=== PATIENT | male | born 1965 | race African-American/Black ===

== ENCOUNTER 2017-12-27 15:16 | Inpatient (IN) | payer OTHER, MEDICARE ==
[2017-12-27 16:00] LABS: ADD MAN DIFF? NO
[2017-12-27 16:02] LABS: BASO # 0.1 x10^3/uL (0.0-0.2); BASO % 1 % (0-3); EOS # 0.4 x10^3/uL (0.0-0.7); EOS % 3 % (0-3); HEMATOCRIT 34.2 % (39.0-53.0); HEMOGLOBIN 11.3 g/dL (13.0-17.5); LYMPH % 8 % (24-48); MEAN CORPUSCULAR HEMOGLOBIN 29 pg (25-35); MEAN CORPUSCULAR HGB CONC 33 g/dL (31-37); MEAN CORPUSCULAR VOLUME 86 fL (79-100); MONO % 8 % (0-9); NEUT # 9.4 x10^3uL (1.8-7.7); NEUT % 79 % (31-73); PLATELET COUNT 266 x10^3/uL (140-400); RED BLOOD COUNT 3.97 x10^6/uL (4.30-5.70); RED CELL DISTRIBUTION WIDTH 14.5 % (11.5-14.5); WHITE BLOOD COUNT 11.9 x10^3/uL (4.0-11.0)
[2017-12-27 16:13] LABS: INR 1.1 (0.8-1.1); PROTHROMBIN TIME PATIENT 13.7 SEC (11.7-14.0)
[2017-12-27 16:14] LABS: PARTIAL THROMBOPLASTIN TIME 35 SEC (24-38)
[2017-12-27 16:18] LABS: ANION GAP 8 (6-14); BLOOD UREA NITROGEN 39 mg/dL (8-26); BUN/CREATININE RATIO 13 (6-20); CALCIUM 8.4 mg/dL (8.5-10.1); CARBON DIOXIDE 27 mmol/L (21-32); CHLORIDE 102 mmol/L (98-107); CREATININE 2.9 mg/dL (0.7-1.3); GFR 22.8; GLUCOSE 251 mg/dL (70-99); POTASSIUM 4.2 mmol/L (3.5-5.1); SODIUM 137 mmol/L (136-145)
[2017-12-27 16:24] LABS: ALBUMIN 2.1 g/dL (3.4-5.0); ALBUMIN/GLOBULIN RATIO 0.4 (1.0-1.7); ALK PHOS 85 U/L (46-116); ALT (SGPT) 34 U/L (16-63); AST (SGOT) 23 U/L (15-37); TOTAL BILIRUBIN 0.3 mg/dL (0.2-1.0); TOTAL PROTEIN 7.1 g/dL (6.4-8.2)
[2017-12-27 16:26] LABS: LACTIC ACID 0.8 mmol/L (0.4-2.0)
[2017-12-27] MEDS: VANCOMYCIN 2 GM in IV DEXTROSE 5 %-0.2 % NACL 500 ML IV (16:44)
[2017-12-27] MEDS: VANCOMYCIN PER PHARMACY MC ×2 (17:56)
[2017-12-27] MEDS ORDERED: PIP/TAZO PER PHARMACY MC ×2 (18:00)
[2017-12-27] MEDS ORDERED: DOCUSATE SODIUM 100 MG CAPSULE. PO ×2 (18:30)
[2017-12-27] MEDS ORDERED: ONDANSETRON PF 4 MG/2 ML VIAL. IV ×2 (18:30)
[2017-12-27] MEDS ORDERED: MORPHINE SULFATE 2 MG/ML DISP.SYRIN. IV ×2 (18:30)
[2017-12-27] MEDS ORDERED: ACETAMINOPHEN 325 MG TABLET. PO ×2 (18:30)
[2017-12-27] MEDS ORDERED: DEXTROSE 50% 25 GM / 50ML DISP.SYRIN. IV ×2 (18:30)
[2017-12-27] MEDS ORDERED: IPRATRPIUM/ALBUTEROL 0.5/2.5MG 3 ML NEBU. NEB ×2 (20:00)
[2017-12-27] MEDS: IPRATRPIUM/ALBUTEROL 0.5/2.5MG 3 ML NEBU. NEB ×2 (20:12)
[2017-12-27] MEDS ORDERED: PNEUMOCOCCAL VAX SCREEN BY RX. MC ×2 (20:15)
[2017-12-27] MEDS ORDERED: ENOXAPARIN 40 MG/0.4 ML SYRINGE. SQ ×2 (21:00)
[2017-12-27] MEDS: ENOXAPARIN 30 MG/0.3 ML SYRINGE. SQ ×2 (21:09)
[2017-12-27] MEDS: IV NORMAL SALINE 1000ML BAG 1,000 ML IV ×2 (21:09)
[2017-12-27] MEDS: PIPERACILLIN/TAZOBACTAM 3.375 GM in IV NORMAL SALINE 50ML 50 ML IV (21:11)
[2017-12-27 21:37] LABS: POC GLUCOSE 214 mg/dL (70-99)
[2017-12-27 22:43] LABS: INFLUENZA A PATIENT NEGATIVE (NEGATIVE); INFLUENZA B PATIENT NEGATIVE (NEGATIVE); OBC FLU VALID
[2017-12-28] MEDS: PIPERACILLIN/TAZOBACTAM 3.375 GM in IV NORMAL SALINE 50ML 50 ML IV ×4 (00:15→19:50)
[2017-12-28] MEDS: traMADol 50 MG TABLET PO ×2 (00:19)
[2017-12-28 04:28] LABS: BILIRUBIN,URINE NEGATIVE (NEG); CLARITY,URINE CLEAR; COLOR,URINE YELLOW; GLUCOSE,URINE 500 mg/dL (NEG); NITRITE,URINE NEGATIVE (NEG); PROTEIN,URINE >=300 mg/dL (NEG-TRACE)
[2017-12-28 04:48] LABS: AMORPHOUS SEDIMENT,UR PRESENT /HPF; BACTERIA,URINE 0 /HPF (0-FEW); HYALINE CASTS, URINE FEW /HPF; RBC,URINE OCC /HPF (0-2); SPERM,URINE PRESENT /HPF; SQUAMOUS EPITHELIAL CELL,UR FEW /LPF
[2017-12-28 05:53] LABS: ADD MAN DIFF? NO
[2017-12-28 06:12] LABS: BASO # 0.1 x10^3/uL (0.0-0.2); BASO % 1 % (0-3); EOS # 0.3 x10^3/uL (0.0-0.7); EOS % 3 % (0-3); HEMOGLOBIN 10.9 g/dL (13.0-17.5); LYMPH # 0.7 x10^3/uL (1.0-4.8); LYMPH % 7 % (24-48); MEAN CORPUSCULAR HEMOGLOBIN 29 pg (25-35); MEAN CORPUSCULAR HGB CONC 33 g/dL (31-37); MEAN CORPUSCULAR VOLUME 87 fL (79-100); MONO # 0.7 x10^3/uL (0.0-1.1); MONO % 7 % (0-9); NEUT # 8.3 x10^3uL (1.8-7.7); NEUT % 83 % (31-73); PLATELET COUNT 244 x10^3/uL (140-400); RED CELL DISTRIBUTION WIDTH 14.3 % (11.5-14.5); WHITE BLOOD COUNT 10.1 x10^3/uL (4.0-11.0)
[2017-12-28 06:21] LABS: ANION GAP 9 (6-14); BLOOD UREA NITROGEN 37 mg/dL (8-26); CALCIUM 8.5 mg/dL (8.5-10.1); CARBON DIOXIDE 25 mmol/L (21-32); CHLORIDE 103 mmol/L (98-107); CREATININE 2.9 mg/dL (0.7-1.3); GFR 27.6; GLUCOSE 304 mg/dL (70-99); POTASSIUM 4.3 mmol/L (3.5-5.1); SODIUM 137 mmol/L (136-145)
[2017-12-28] MEDS: IPRATRPIUM/ALBUTEROL 0.5/2.5MG 3 ML NEBU. NEB ×8 (07:24→18:27)
[2017-12-28 07:28] LABS: POC GLUCOSE 273 mg/dL (70-99)
[2017-12-28] MEDS: INSULIN ASPART 300 UNITS/3 ML INSULN.PEN SQ ×6 (09:35→17:00)
[2017-12-28 11:28] LABS: POC GLUCOSE 207 mg/dL (70-99)
[2017-12-28] MEDS: IV NORMAL SALINE 1000ML BAG 1,000 ML IV ×2 (12:57)
[2017-12-28] MEDS: VANCOMYCIN PER PHARMACY MC ×2 (15:20)
[2017-12-28 16:58] LABS: POC GLUCOSE 74 mg/dL (70-99)
[2017-12-28] MEDS ORDERED: VANCOMYCIN 1.5 GM in IV DEXTROSE 5 %-0.45 % NACL 500 ML IV (17:00)
[2017-12-28] MEDS: VANCOMYCIN 1.25 GM in IV 1/2 NORMAL SALINE 250 ML IV (21:16)
[2017-12-28] MEDS: LACTOBACILLUS RHAMNOSUS GG 1 CAPSULE. PO ×2 (21:17)
[2017-12-28] MEDS: ENOXAPARIN 30 MG/0.3 ML SYRINGE. SQ ×2 (21:17)
[2017-12-28 21:20] LABS: POC GLUCOSE 114 mg/dL (70-99)
[2017-12-29] MEDS: PIPERACILLIN/TAZOBACTAM 3.375 GM in IV NORMAL SALINE 50ML 50 ML IV ×4 (00:10→20:53)
[2017-12-29] MEDS: IV NORMAL SALINE 1000ML BAG 1,000 ML IV ×4 (00:11→20:53)
[2017-12-29] MEDS: traMADol 50 MG TABLET PO ×2 (03:30)
[2017-12-29] MEDS: ALBUTEROL SULFATE 2.5 MG/3 ML NEBU. NEB ×2 (03:43)
[2017-12-29 05:48] LABS: WHITE BLOOD COUNT 15.6 x10^3/uL (4.0-11.0)
[2017-12-29 05:49] LABS: BASO % 0 % (0-3); EOS % 2 % (0-3); HEMATOCRIT 34.5 % (39.0-53.0); HEMOGLOBIN 11.4 g/dL (13.0-17.5); LYMPH % 4 % (24-48); MEAN CORPUSCULAR HEMOGLOBIN 29 pg (25-35); MEAN CORPUSCULAR HGB CONC 33 g/dL (31-37); MEAN CORPUSCULAR VOLUME 86 fL (79-100); MONO % 6 % (0-9); NEUT # 13.7 x10^3uL (1.8-7.7); NEUT % 88 % (31-73); PLATELET COUNT 262 x10^3/uL (140-400); RED BLOOD COUNT 3.99 x10^6/uL (4.30-5.70); RED CELL DISTRIBUTION WIDTH 14.4 % (11.5-14.5)
[2017-12-29 05:50] LABS: BASO # 0.1 x10^3/uL (0.0-0.2); EOS # 0.2 x10^3/uL (0.0-0.7); LYMPH # 0.6 x10^3/uL (1.0-4.8)
[2017-12-29 05:51] LABS: ADD MAN DIFF? YES
[2017-12-29 06:33] LABS: ANION GAP 10 (6-14); BLOOD UREA NITROGEN 41 mg/dL (8-26); CALCIUM 8.5 mg/dL (8.5-10.1); CARBON DIOXIDE 25 mmol/L (21-32); CHLORIDE 103 mmol/L (98-107); CREATININE 3.4 mg/dL (0.7-1.3); GLUCOSE 168 mg/dL (70-99); POTASSIUM 4.8 mmol/L (3.5-5.1); SODIUM 138 mmol/L (136-145)
[2017-12-29 07:37] LABS: POC GLUCOSE 153 mg/dL (70-99)
[2017-12-29] MEDS: IPRATRPIUM/ALBUTEROL 0.5/2.5MG 3 ML NEBU. NEB ×8 (08:02→19:27)
[2017-12-29] MEDS: LACTOBACILLUS RHAMNOSUS GG 1 CAPSULE. PO ×4 (09:26→20:54)
[2017-12-29] MEDS: PNEUMOC CONJ VACC 23-VALENT 0.5 ML VIAL. VAX IM ×2 (09:28)
[2017-12-29] MEDS: INSULIN ASPART 300 UNITS/3 ML INSULN.PEN SQ ×6 (09:31→17:00)
[2017-12-29] MEDS: hydrALAZINE 20 MG/ML VIAL. IVP ×2 (09:59)
[2017-12-29 11:12] LABS: % EOS 1 % (0-5); % LYMPHS 5 % (24-48); % MONOS 7 % (0-10); % SEGS 87 % (35-66); PLT ESTIMATE ADEQUATE (ADEQUATE)
[2017-12-29 11:14] LABS: BURR CELLS MOD
[2017-12-29 12:03] LABS: POC GLUCOSE 161 mg/dL (70-99)
[2017-12-29] MEDS: VANCOMYCIN PER PHARMACY MC ×4 (12:48→18:31)
[2017-12-29 16:52] LABS: POC GLUCOSE 102 mg/dL (70-99)
[2017-12-29 17:41] LABS: VANC TR 18.8 mcg/mL (10.0-20.0)
[2017-12-29] MEDS: VANCOMYCIN 1.25 GM in IV 1/2 NORMAL SALINE 250 ML IV (18:27)
[2017-12-29 20:25] LABS: POC GLUCOSE 211 mg/dL (70-99)
[2017-12-29] MEDS: ENOXAPARIN 30 MG/0.3 ML SYRINGE. SQ ×2 (20:55)
[2017-12-30] MEDS: PIPERACILLIN/TAZOBACTAM 3.375 GM in IV NORMAL SALINE 50ML 50 ML IV ×4 (01:41→20:38)
[2017-12-30] MEDS: hydrALAZINE 20 MG/ML VIAL. IVP ×6 (01:42→20:41)
[2017-12-30] MEDS: IV NORMAL SALINE 1000ML BAG 1,000 ML IV ×4 (03:45→20:39)
[2017-12-30 05:15] LABS: ADD MAN DIFF? NO
[2017-12-30 05:20] LABS: BASO # 0.1 x10^3/uL (0.0-0.2); BASO % 1 % (0-3); EOS # 0.2 x10^3/uL (0.0-0.7); EOS % 2 % (0-3); HEMATOCRIT 32.2 % (39.0-53.0); HEMOGLOBIN 10.9 g/dL (13.0-17.5); LYMPH # 0.5 x10^3/uL (1.0-4.8); LYMPH % 4 % (24-48); MEAN CORPUSCULAR HEMOGLOBIN 29 pg (25-35); MEAN CORPUSCULAR HGB CONC 34 g/dL (31-37); MEAN CORPUSCULAR VOLUME 86 fL (79-100); MONO # 0.9 x10^3/uL (0.0-1.1); MONO % 8 % (0-9); NEUT # 10.6 x10^3uL (1.8-7.7); NEUT % 86 % (31-73); PLATELET COUNT 278 x10^3/uL (140-400); RED BLOOD COUNT 3.74 x10^6/uL (4.30-5.70); RED CELL DISTRIBUTION WIDTH 14.2 % (11.5-14.5); WHITE BLOOD COUNT 12.3 x10^3/uL (4.0-11.0)
[2017-12-30 05:47] LABS: ANION GAP 11 (6-14); BLOOD UREA NITROGEN 37 mg/dL (8-26); CALCIUM 8.8 mg/dL (8.5-10.1); CARBON DIOXIDE 23 mmol/L (21-32); CHLORIDE 103 mmol/L (98-107); CREATININE 2.9 mg/dL (0.7-1.3); GFR 27.6; GLUCOSE 245 mg/dL (70-99); POTASSIUM 4.2 mmol/L (3.5-5.1); SODIUM 137 mmol/L (136-145)
[2017-12-30 07:33] LABS: POC GLUCOSE 221 mg/dL (70-99)
[2017-12-30] MEDS: LACTOBACILLUS RHAMNOSUS GG 1 CAPSULE. PO ×4 (07:58→20:36)
[2017-12-30] MEDS: INSULIN ASPART 300 UNITS/3 ML INSULN.PEN SQ ×6 (07:59→17:00)
[2017-12-30] MEDS: IPRATRPIUM/ALBUTEROL 0.5/2.5MG 3 ML NEBU. NEB ×8 (08:07→19:45)
[2017-12-30 11:39] LABS: POC GLUCOSE 189 mg/dL (70-99)
[2017-12-30] MEDS: traMADol 50 MG TABLET PO ×2 (11:57)
[2017-12-30] MEDS: VANCOMYCIN PER PHARMACY MC ×2 (13:36)
[2017-12-30 17:09] LABS: POC GLUCOSE 146 mg/dL (70-99)
[2017-12-30] MEDS: VANCOMYCIN 1.25 GM in IV 1/2 NORMAL SALINE 250 ML IV (17:46)
[2017-12-30] MEDS: ENOXAPARIN 30 MG/0.3 ML SYRINGE. SQ ×2 (20:39)
[2017-12-30 23:36] LABS: POC GLUCOSE 230 mg/dL (70-99)
[2017-12-31] MEDS: PIPERACILLIN/TAZOBACTAM 3.375 GM in IV NORMAL SALINE 50ML 50 ML IV ×4 (00:15→20:34)
[2017-12-31 04:03] LABS: ADD MAN DIFF? NO
[2017-12-31 04:51] LABS: BASO % 0 % (0-3); EOS # 0.4 x10^3/uL (0.0-0.7); EOS % 4 % (0-3); HEMATOCRIT 33.8 % (39.0-53.0); HEMOGLOBIN 11.6 g/dL (13.0-17.5); LYMPH # 0.5 x10^3/uL (1.0-4.8); LYMPH % 5 % (24-48); MEAN CORPUSCULAR HEMOGLOBIN 30 pg (25-35); MEAN CORPUSCULAR HGB CONC 34 g/dL (31-37); MEAN CORPUSCULAR VOLUME 86 fL (79-100); MONO # 0.8 x10^3/uL (0.0-1.1); MONO % 8 % (0-9); NEUT # 8.5 x10^3uL (1.8-7.7); NEUT % 83 % (31-73); PLATELET COUNT 304 x10^3/uL (140-400); RED BLOOD COUNT 3.93 x10^6/uL (4.30-5.70); RED CELL DISTRIBUTION WIDTH 14.6 % (11.5-14.5); WHITE BLOOD COUNT 10.3 x10^3/uL (4.0-11.0)
[2017-12-31 05:37] LABS: ANION GAP 11 (6-14); BLOOD UREA NITROGEN 28 mg/dL (8-26); CALCIUM 9.3 mg/dL (8.5-10.1); CARBON DIOXIDE 24 mmol/L (21-32); CHLORIDE 105 mmol/L (98-107); CREATININE 2.6 mg/dL (0.7-1.3); GFR 31.3; GLUCOSE 148 mg/dL (70-99); SODIUM 140 mmol/L (136-145)
[2017-12-31] MEDS: IPRATRPIUM/ALBUTEROL 0.5/2.5MG 3 ML NEBU. NEB ×8 (07:42→20:00)
[2017-12-31] MEDS: INSULIN ASPART 300 UNITS/3 ML INSULN.PEN SQ ×6 (08:00→17:00)
[2017-12-31] MEDS: LACTOBACILLUS RHAMNOSUS GG 1 CAPSULE. PO ×4 (08:23→20:20)
[2017-12-31] MEDS: hydrALAZINE 20 MG/ML VIAL. IVP ×4 (08:25→20:23)
[2017-12-31] MEDS: METOPROLOL TART IMMED RELEASE 50 MG TABLET. PO ×2 (10:13)
[2017-12-31 10:47] LABS: POC GLUCOSE 120 mg/dL (70-99)
[2017-12-31 11:41] LABS: POC GLUCOSE 198 mg/dL (70-99)
[2017-12-31] MEDS: VANCOMYCIN PER PHARMACY MC ×2 (15:37)
[2017-12-31] MEDS: traMADol 50 MG TABLET PO ×4 (15:39→16:39)
[2017-12-31] MEDS: IV NORMAL SALINE 1000ML BAG 1,000 ML IV ×4 (16:57→19:45)
[2017-12-31] MEDS: VANCOMYCIN 1.25 GM in IV 1/2 NORMAL SALINE 250 ML IV (17:02)
[2017-12-31 17:11] LABS: POC GLUCOSE 237 mg/dL (70-99)
[2017-12-31] MEDS ORDERED: DICLOFENAC SODIUM 25 MG TABLET.DR PO ×2 (19:30)
[2017-12-31] MEDS: GABAPENTIN 300 MG CAPSULE. PO ×2 (20:19)
[2017-12-31] MEDS: CARVEDILOL 12.5 MG TABLET. PO ×2 (20:21)
[2017-12-31] MEDS: ENOXAPARIN 30 MG/0.3 ML SYRINGE. SQ ×2 (20:22)
[2017-12-31 20:23] LABS: POC GLUCOSE 173 mg/dL (70-99)
[2017-12-31] MEDS: INSULIN DETEMIR 300 UNITS/3 ML INSULN.PEN. SQ ×2 (20:27)
[2017-12-31] MEDS ORDERED: SIMVASTATIN 40 MG TABLET. PO ×2 (21:00)
[2018-01-01] MEDS: PIPERACILLIN/TAZOBACTAM 3.375 GM in IV NORMAL SALINE 50ML 50 ML IV ×3 (00:14→12:42)
[2018-01-01] MEDS: ALBUTEROL SULFATE 2.5 MG/3 ML NEBU. NEB ×2 (02:59)
[2018-01-01 04:41] LABS: ADD MAN DIFF? NO
[2018-01-01 04:44] LABS: BASO % 1 % (0-3); EOS # 0.5 x10^3/uL (0.0-0.7); EOS % 5 % (0-3); HEMATOCRIT 33.4 % (39.0-53.0); HEMOGLOBIN 10.9 g/dL (13.0-17.5); LYMPH # 0.7 x10^3/uL (1.0-4.8); LYMPH % 7 % (24-48); MEAN CORPUSCULAR HEMOGLOBIN 28 pg (25-35); MEAN CORPUSCULAR HGB CONC 33 g/dL (31-37); MEAN CORPUSCULAR VOLUME 87 fL (79-100); MONO # 0.8 x10^3/uL (0.0-1.1); MONO % 9 % (0-9); NEUT # 7.7 x10^3uL (1.8-7.7); NEUT % 79 % (31-73); PLATELET COUNT 308 x10^3/uL (140-400); RED BLOOD COUNT 3.83 x10^6/uL (4.30-5.70); RED CELL DISTRIBUTION WIDTH 14.1 % (11.5-14.5); WHITE BLOOD COUNT 9.8 x10^3/uL (4.0-11.0)
[2018-01-01 05:14] LABS: ANION GAP 10 (6-14); BLOOD UREA NITROGEN 27 mg/dL (8-26); CALCIUM 8.8 mg/dL (8.5-10.1); CARBON DIOXIDE 25 mmol/L (21-32); CHLORIDE 106 mmol/L (98-107); CREATININE 2.6 mg/dL (0.7-1.3); GFR 31.3; GLUCOSE 92 mg/dL (70-99); POTASSIUM 4.1 mmol/L (3.5-5.1); SODIUM 141 mmol/L (136-145)
[2018-01-01 07:22] LABS: POC GLUCOSE 103 mg/dL (70-99)
[2018-01-01] MEDS: INSULIN ASPART 300 UNITS/3 ML INSULN.PEN SQ ×8 (08:00→12:52)
[2018-01-01] MEDS: IPRATRPIUM/ALBUTEROL 0.5/2.5MG 3 ML NEBU. NEB ×2 (08:23)
[2018-01-01] MEDS: GABAPENTIN 300 MG CAPSULE. PO ×2 (08:35)
[2018-01-01] MEDS: LACTOBACILLUS RHAMNOSUS GG 1 CAPSULE. PO ×2 (08:35)
[2018-01-01] MEDS: FLUoxetine HCL 20 MG CAPSULE PO ×2 (08:35)
[2018-01-01] MEDS: CARVEDILOL 12.5 MG TABLET. PO ×2 (08:35)
[2018-01-01] MEDS: amLODIPine BESYLATE 10 MG TABLET PO ×2 (08:36)
[2018-01-01] MEDS: IV NORMAL SALINE 1000ML BAG 1,000 ML IV ×2 (09:05)
[2018-01-01] MEDS: VANCOMYCIN PER PHARMACY MC ×2 (13:07)
[2018-01-01 15:42] LABS: POC GLUCOSE 161 mg/dL (70-99)
[2018-01-01] MEDS ORDERED: INSULIN ASPART 300 UNITS/3 ML INSULN.PEN SQ ×2 (17:00)
[2018-01-01] MEDS ORDERED: ATORVASTATIN CALCIUM 40 MG TABLET. PO ×2 (21:00)
== END 2018-01-01 15:00 | disposition home or self-care (01) | DRG 871 ==
LOC: ER 15:16 → 6 SOUTH 17:06
DX: A41.9 Sepsis, unspecified organism (principal); J18.9 Pneumonia, unspecified organism; J96.01 Acute respiratory failure with hypoxia; N17.9 Acute kidney failure, unspecified; E11.22 Type 2 diabetes mellitus with diabetic chronic kidney disease; N18.4 Chronic kidney disease, stage 4 (severe); E44.1 Mild protein-calorie malnutrition; Y95 Nosocomial condition; F17.210 Nicotine dependence, cigarettes, uncomplicated; I12.9 Hypertensive chronic kidney disease with stage 1 through stage 4 chronic kidney disease, or unspecified chronic kidney disease; D64.9 Anemia, unspecified; Z89.511 Acquired absence of right leg below knee; Z82.49 Family history of ischemic heart disease and other diseases of the circulatory system; Z79.899 Other long term (current) drug therapy; Z79.4 Long term (current) use of insulin
CPT/HCPCS: 36415; 71045; 71250; 80048; 80053; 80202; 81001; 82962; 83605; 85007; 85025; 85610; 85730; 87040; 87070; 87086; 87205; 87804; 87804-59; 90732; 94640; 94760; 96365; 96366; 97161-GP; 97165-GO; 99285; 99285-25; J0360; J1650; J1815; J2543; J3370; J7030; J7613; J7620